=== PATIENT | male | born 1960 | race African-American/Black ===

== ENCOUNTER 2023-07-02 13:36 | Inpatient (IN) ==
[2023-07-02 14:07] LABS: ABS Eosinophils 0.1 10^3/uL (0.0-0.5); ABS Lymphocytes 1.3 10^3/uL (1.0-4.8); ABS Monocytes 0.6 10^3/uL (0.0-1.1); ABS Neutrophils 2.6 10^3/uL (1.5-7.6); Eosinophil % 1.8 %; Hematocrit 40.6 % (38-53); Hemoglobin 13.5 g/dL (13.2-16.3); Mean Corpuscular Hgb Conc 33.2 g/dL (31-36); Mean Corpuscular Volume 90.3 fL (80-97); Nucleated Red Blood Cells % 0.1 %/100WBC (0.0-0.8); Platelet Count 232 10^3/uL (150-450); Red Cell Distribution Width 14.7 % (12-17); White Blood Count 4.6 10^3/uL (3.6-10.2)
[2023-07-02] MEDS: Famotidine IV 10 MG/ML 2 ml VIAL (20 mg) IV SLOW PU ONE (14:24)
[2023-07-02 14:26] LABS: INR 1.05 (0.83-1.13)
[2023-07-02 14:58] LABS: Albumin 3.7 g/dL (3.2-5.2); Albumin/Globulin Ratio 1.6 (1-3); Calcium 9.1 mg/dL (8.6-10.3); Creatinine, Serum 0.99 mg/dL (0.67-1.17); Globulin 2.3 g/dL (2-4); Potassium 4.7 mmol/L (3.5-5.0); Total Bilirubin 0.5 mg/dL (0.2-1.0); eGFR CKD-EPI 86.7 (>60)
[2023-07-02 15:40] LABS: High Sensitivity Troponin 1 Hr 51 pg/mL (<20)
[2023-07-02] MEDS: Heparin - STEMI 5,000 UNITS/ML 1 ml VIAL IV ONE (17:44)
[2023-07-02] MEDS ORDERED: Albuterol HFA INHALER 8 gm MDI INH PRN (17:45)
[2023-07-02] MEDS ORDERED: Morphine 2 MG/ML SYRINGE IV PRN (17:49)
[2023-07-02] MEDS: Heparin 5000 UNITS/ML 1 mL VIAL IV SCH (18:22)
[2023-07-02] MEDS: Heparin DRIP 25,000 UNITS BAG 25,000 UNITS/250 ML BAG IV SCH (18:24)
[2023-07-02 18:42] LABS: ABS Eosinophils 0.1 10^3/uL (0.0-0.5); ABS Lymphocytes 1.4 10^3/uL (1.0-4.8); ABS Monocytes 0.5 10^3/uL (0.0-1.1); Hematocrit 38.1 % (38-53); Lymphocyte % 35.3 %; Mean Corpuscular Hemoglobin 30.4 pg (27-33); Mean Corpuscular Hgb Conc 34.2 g/dL (31-36); Mean Corpuscular Volume 88.9 fL (80-97); Nucleated Red Blood Cells % 0.1 %/100WBC (0.0-0.8); Platelet Count 222 10^3/uL (150-450); Red Blood Count 4.28 10^6/uL (4.06-5.63); Red Cell Distribution Width 14.4 % (12-17)
[2023-07-02 19:15] LABS: Creatinine, Serum 1.06 mg/dL (0.67-1.17); eGFR CKD-EPI 79.8 (>60)
[2023-07-02] MEDS: Triamcinolone 0.5% OINT 1 TUBE TOPICAL SCH (21:05)
[2023-07-03 07:34] LABS: Hematocrit 40.6 % (38-53); Hemoglobin 13.9 g/dL (13.2-16.3); Mean Corpuscular Hemoglobin 30.6 pg (27-33); Mean Corpuscular Hgb Conc 34.2 g/dL (31-36); Mean Corpuscular Volume 89.3 fL (80-97); Mean Platelet Volume 8.8 fL (7.5-11.2); Platelet Count 240 10^3/uL (150-450); Red Blood Count 4.55 10^6/uL (4.06-5.63); Red Cell Distribution Width 14.6 % (12-17); White Blood Count 5.2 10^3/uL (3.6-10.2)
[2023-07-03 08:05] LABS: ABS Basophils 0.1 10^3/uL (0.0-0.1); ABS Eosinophils 0.2 10^3/uL (0.0-0.5); ABS Lymphocytes 1.7 10^3/uL (1.0-4.8); ABS Monocytes 0.7 10^3/uL (0.0-1.1); ABS Neutrophils 2.5 10^3/uL (1.5-7.6); ABS Nucleated RBC 0.01 10^3/ul; Lymphocyte % 32.3 %; Nucleated Red Blood Cells % 0.2 %/100WBC (0.0-0.8); RBC Morphology Normal (Normal)
[2023-07-03 08:06] LABS: Calcium 8.8 mg/dL (8.6-10.3); Creatinine, Serum 1.22 mg/dL (0.67-1.17); Magnesium 1.9 mg/dL (1.9-2.7); Potassium 4.3 mmol/L (3.5-5.0); eGFR CKD-EPI 67.5 (>60)
[2023-07-03] MEDS: Aspirin EC 81 mg TAB.EC (enteric coated) PO SCH (08:22)
[2023-07-03] MEDS: NF: Bictegravir/Emtricit/Tenofov 1 TABLET PO SCH (08:22)
[2023-07-03] MEDS: Isosorbide Mononit ER 60mg TAB PO SCH (08:22)
[2023-07-03] MEDS ORDERED: nitroGLYCERIN DRIP 25,000 MCG/250 ML BTL ONE (12:57)
[2023-07-03] MEDS ORDERED: VERAPAMIL 2.5 MG/ML 2 ML VIAL ** 5 mg/2 ml ONE (12:57)
[2023-07-03] MEDS ORDERED: Heparin 1,000 UNIT/ML 10 ml (10,000 UNITS) CATHLAB/DIALYSIS ONE (12:57)
[2023-07-03] MEDS ORDERED: Heparin 2 UNITS/ML 1000 mls 2,000 ML IV ONE (12:57)
[2023-07-03] MEDS ORDERED: Lidocaine 1% MPF 5 ML VIAL ONE (12:58)
[2023-07-03] MEDS ORDERED: Iohexol 350 (CONTRAST) 200 ML MDV IV ONE (12:58)
[2023-07-03] MEDS ORDERED: Midazolam 5 mg/5 ml VIAL 1 mg/ml 5 ml VIAL (5 mg) ONE (12:59)
[2023-07-03] MEDS ORDERED: fentaNYL 100 mcg/2 ml 50 MCG/ML VIAL ONE (12:59)
[2023-07-03] MEDS: fentaNYL 100 mcg/2 ml 50 MCG/ML VIAL IV SLOW PU ONE (14:14)
[2023-07-03] MEDS: Midazolam 10 mg/10 ml VIAL 1 mg/ml 10 ml VIAL (10 mg) IV SLOW PU ONE (14:14)
[2023-07-03] MEDS: NS 0.9% 1000 ml BAG 1,000 ML IV SCH (14:15)
[2023-07-03] MEDS ORDERED: Heparin - STEMI 5,000 UNITS/ML 1 ml VIAL IV ONE (14:50)
[2023-07-03] MEDS: Lactated Ringers 1000 ml BAG 1,000 ML IV SCH (23:37)
[2023-07-04] MEDS: Heparin DRIP 25,000 UNITS BAG 25,000 UNITS/250 ML BAG IV SCH (00:11)
[2023-07-04 07:05] LABS: Calcium 8.9 mg/dL (8.6-10.3); Creatinine, Serum 1.3 mg/dL (0.67-1.17); Magnesium 1.7 mg/dL (1.9-2.7); Potassium 4.2 mmol/L (3.5-5.0); eGFR CKD-EPI 62.5 (>60)
[2023-07-04] MEDS ORDERED: Naloxone 0.4 mg VIAL 0.4 mg/ml 1 ml VIAL IV PUSH PRN (08:00)
[2023-07-04] MEDS ORDERED: Flumazenil 0.5 mg/5 ml 0.1 MG/ML 5 ml VIAL IV PRN (08:00)
[2023-07-04] MEDS: Midazolam 10 mg/10 ml VIAL 1 mg/ml 10 ml VIAL (10 mg) IV SLOW PU ONE (08:16)
[2023-07-04] MEDS: fentaNYL 100 mcg/2 ml 50 MCG/ML VIAL IV SLOW PU ONE (08:16)
[2023-07-04] MEDS: NF: Bictegravir/Emtricit/Tenofov 1 TABLET PO SCH (09:56)
[2023-07-04 13:51] VITALS: BP 121/69
[2023-07-08] MEDS: Iodixanol 320 (CONTRAST) 100 ML SDV IV ONE (09:11)
== END 2023-07-04 15:42 | disposition left against medical advice (07) | DRG 190 ==
LOC: ED 13:36 → EDHOLD 13:36 → MEDTELE 19:52
PROVIDERS: ADMIT Internal Medicine; ATTEND Internal Medicine